=== PATIENT | female | born 1995 | race Caucasian/White ===

== ENCOUNTER 2017-03-13 07:38 | Emergency (ER) | payer OTHER, BC ==
--- NOTE | 2017-03-13 08:46 | UC ---
Throat Pain/Nasal Jaylen HPI - HPI Summary HPI Summary: ONSET OF ST AND PAIN WITH SWALLOWING YESTERDAY. HAS CHILLS AND MYALGIAS. NO COUGH OR CONGESTION. GETS STREP FREQUENTLY AND THIS FEELS THE SAME. - History of Current Complaint Chief Complaint: UCGeneralIllness Stated Complaint: SORE THROAT Time Seen by Provider: 03/13/17 08:22 Hx Obtained From: Patient Hx Last Menstrual Period: 02/09/17 Onset/Duration: Gradual Onset, Lasting Hours, Still Present Severity: Moderate Pain Intensity: 9 Pain Scale Used: 0-10 Numeric Cough: None - Allergies/Home Medications Allergies/Adverse Reactions: Allergies Allergy/AdvReac Type Severity Reaction Status Date / Time Doxycycline AdvReac GI Upset Verified 03/13/17 08:08 Home Medications: Home Medications Control 03/13/17 [History] Lactobacillus [Probiotic] 1 cap PO 03/13/17 [History Confirmed 03/13/17] Loratadine [Claritin 10 MG CAP] 10 mg PO 03/13/17 [History] Montelukast Sodium TAB* [Singulair 5 mg TAB*] 5 mg PO DAILY 03/13/17 [History Confirmed 03/13/17] Sertraline HCl [Zoloft] 50 mg PO 03/13/17 [History] PMH/Surg Hx/FS Hx/Imm Hx Respiratory History: Asthma - Surgical History Surgical History: None - Family History Known Family History: Positive: Hypertension - Social History Alcohol Use: Occasionally Substance Use Type: None Smoking Status (MU): Never Smoked Tobacco Review of Systems Constitutional: Chills, Fatigue ENT: Sore Throat Respiratory: Negative Cardiovascular: Negative Gastrointestinal: Negative Musculoskeletal: Myalgia All Other Systems Reviewed And Are Negative: Yes Physical Exam Triage Information Reviewed: Yes Appearance: Well-Appearing, Well-Nourished, Pain Distress - MILD Vital Signs: Initial Vital Signs Temp 99.8 F 03/13/17 08:10 Pulse 107 03/13/17 08:10 Resp 18 03/13/17 08:10 BP 130/73 03/13/17 08:10 Pulse Ox 98 03/13/17 08:10 Vital Signs Reviewed: Yes Eyes: Positive: Conjunctiva Clear ENT: Positive: Hearing grossly normal, Pharyngeal erythema, Tonsillar swelling, Muffled/hoarse voice. Negative: Tonsillar exudate Neck: Positive: Supple, Tenderness @ - RIGHT SPFL CERVICAL LAD, Enlarged Nodes @ - RIGHT SPFL CERVICAL LAD Respiratory Exam: Normal Cardiovascular: Positive: Tachycardia Abdomen Description: Positive: Soft Musculoskeletal: Positive: No Edema Neurological: Positive: Alert Psychological: Positive: Age Appropriate Behavior Skin: Negative: rashes Diagnostics - Laboratory Diagnostic Studies Completed/Ordered: RAPID STREP NEGATIVE Throat Pain/Nasal Course/Dx - Course Course Of Treatment: RAPID STREP NEGATIVE. PT STATES SHE OFTEN GETS STREP AND IT FEELS THE SAME. GIVEN HER PRESENTATION WILL COVER WITH ABX. PT STATES THE LAST TIME SHE GOT AMOX IT WAS INEFFECTIVE. COUNSELED ABOUT CONCERN FOR RESISTANCE WITH RECURRENT FREQUENT USE OF BROAD SPECTRUM ABX. PT INTERESTED IN DISCUSSING TONSILLECTOMY WITH ENT. - Differential Dx/Diagnosis Provider Diagnoses: ACUTE PHARYNGITIS Discharge - Discharge Plan Condition: Stable Disposition: HOME Prescriptions: Amoxicillin/Clavulanate TAB* [Augmentin TAB 875*] 875 mg PO BID #20 tab Patient Education Materials: Pharyngitis (ED), Strep Throat (ED) Additional Instructions: STREP TEST TODAY WAS NEGATIVE. GIVEN YOUR PRESENTATION AND HISTORY WILL COVER WITH ANTIBIOTICS ANYWAY. IF YOU ARE INTERESTED IN DISCUSSING TONSILLECTOMY CALL ENT BELOW TO SCHEDULE AN APPOINTMENT. [facility] IN [place] [address] [facility] [phone] CALL THE NUMBER BELOW FOR ASSISTANCE IN ESTABLISHING WITH A PCP An additional resource available to assist in finding the appropriate physician for your health care needs is the [facility] ([facility]). You may contact them by calling [phone].
== END 2017-03-13 08:57 | disposition home or self-care (01) ==
LOC: UCEAST 07:38
DX: J02.9 Acute pharyngitis, unspecified (principal)
CPT/HCPCS: 87651; 99202; G0463